=== PATIENT | female | born 1975 | race Caucasian/White ===

== ENCOUNTER 2019-03-12 07:32 | Day surgery (SDC) | payer OTHER ==
[~2019-03-12] VITALS: Ht 152.4 cm; Wt 83.0 kg
[~2019-03-12 07:32] MED LIST: none per pt
[2019-03-12] MEDS ORDERED: LACTATED RINGERS 1,000 ML IV SCH (07:49)
[2019-03-12] MEDS ORDERED: GABAPENTIN 300 MG CAPSULE PO ONE ×2 (08:00→09:00)
[2019-03-12] MEDS ORDERED: ACETAMINOPHEN 500 MG TABLET PO ONE ×2 (08:00→09:00)
[2019-03-12] MEDS ORDERED: SCOPOLAMINE PATCH, 1.5MG PATCH.TD72 TD ONE ×2 (08:00→09:00)
[2019-03-12 08:03] VITALS: BP 120/88
[2019-03-12] MEDS ORDERED: DEXAMETHASONE 4 MG/ML, 1ML ONE ×2 (08:23)
[2019-03-12] MEDS ORDERED: ROCURONIUM 10MG/ML,5ML ONE (08:23)
[2019-03-12] MEDS ORDERED: LIDOCAINE-MPF 2% ,5ML ONE (08:23)
[2019-03-12] MEDS ORDERED: PROPOFOL 10 MG/ML, 20ML ONE (08:23)
[2019-03-12] MEDS ORDERED: FENTANYL PF 100 MCG/2ML ONE ×2 (08:23→11:37)
[2019-03-12] MEDS ORDERED: MIDAZOLAM 1 MG/ML, 2ML ONE (08:23)
[2019-03-12] MEDS ORDERED: ONDANSETRON 2MG/ML, 2ML ONE (08:24)
[2019-03-12] MEDS ORDERED: CEFAZOLIN 1,000 MG ONE ×2 (08:24)
[2019-03-12] MEDS ORDERED: INDIGO CARMINE 0.8%, 5ML ONE (09:50)
[2019-03-12] MEDS ORDERED: LIDOCAINE 1%-EPI 1:100K, 20ML ONE (09:50)
[2019-03-12] MEDS ORDERED: GLYCOPYRROLATE 0.2MG/1ML, 5ML ONE (10:06)
[2019-03-12] MEDS ORDERED: NEOSTIGMINE 1 MG/ML, 10ML ONE (10:06)
[2019-03-12] MEDS ORDERED: OXYcodone 5 MG/5 ML ORAL.SOL UDC PO PRN (11:00)
[2019-03-12] MEDS ORDERED: hydrALAzine 20 MG/ML, 1ML IV PRN (11:00)
[2019-03-12] MEDS ORDERED: METOCLOPRAMIDE 5 MG/ML, 2ML IV PRN (11:00)
[2019-03-12] MEDS ORDERED: ONDANSETRON 2MG/ML, 2ML IV PRN (11:00)
[2019-03-12] MEDS ORDERED: MEPERIDINE/PF 25MG/ML,1ML IVPush PRN (11:00)
[2019-03-12] MEDS ORDERED: HYDROmorphone 2 MG/ML, 1ML IVPush PRN (11:00)
[2019-03-12] MEDS ORDERED: LORazepam 2 MG/ML, 1ML IVPush PRN (11:00)
[2019-03-12] MEDS ORDERED: KETOROLAC 30 MG/1 ML ONE (11:15)
[2019-03-12] MEDS ORDERED: OXYcodone 5 MG/5 ML ORAL.SOL UDC ONE (11:37)
[2019-03-12] MEDS: FENTANYL PF 100 MCG/2ML IV PRN ×2 (11:38→11:52)
[2019-03-12] MEDS ORDERED: HYDROmorphone 1 MG/ML, 1ML INJ ONE (12:00)
== END 2019-03-12 15:30 | disposition home or self-care (01) ==
LOC: OUT 07:32
PROVIDERS: ATTEND Obstetrics & Gynecology Gynecology
DX: N92.0 Excessive and frequent menstruation with regular cycle (principal); N94.6 Dysmenorrhea, unspecified; N87.9 Dysplasia of cervix uteri, unspecified; N88.8 Other specified noninflammatory disorders of cervix uteri; N81.5 Vaginal enterocele; D50.0 Iron deficiency anemia secondary to blood loss (chronic); E66.3 Overweight; Z98.51 Tubal ligation status
CPT/HCPCS: 36415; 58270; 85014; 88307; J0690; J1100; J1170; J1885; J2250; J2405; J2704; J2710; J3010; J3490; J7120

== ENCOUNTER 2020-06-28 13:37 | Day surgery (SDC) | payer OTHER ==
[~2020-06-28] VITALS: Ht 152.4 cm; Wt 84.2 kg
[2020-06-28] MEDS ORDERED: ACET-1600 PO (14:00)
[2020-06-28] MEDS ORDERED: LACTATED RINGERS 1,000 ML IV SCH (14:00)
[2020-06-28] MEDS ORDERED: OXYC-302 PEG (14:00)
[2020-06-28] MEDS ORDERED: CHLORHEXIDINE 15 ML UDC ONE (14:05)
[2020-06-28 14:22] VITALS: BP 129/85
[2020-06-28 14:29] LABS: BASOPHILS % (AUTO) 1 % (0-1); EOSINOPHILS % (AUTO) 1 % (1-7); LYMPHOCYTES % (AUTO) 24 % (22-44); MEAN CORPUSCULAR HEMOGLOBIN 29.9 pg (27.0-34.8); MEAN CORPUSCULAR HGB CONC 33.7 g/dL (32.4-35.8); MEAN PLATELET VOLUME 8.5 fL (7.4-10.4); MONOCYTES % (AUTO) 7 % (2-9); NEUTROPHILS % (AUTO) 68 % (42-75); PLATELET COUNT 293 x10^3/uL (130-400); RED CELL DISTRIBUTION WIDTH 13.5 % (9.6-15.2)
[2020-06-28] MEDS ORDERED: CHLORHEXIDINE 15 ML UDC PO ONE (14:30)
[2020-06-28 14:35] LABS: ANION GAP 7 mmol/L (5-15); CALCIUM 9.1 mg/dL (8.5-10.1); CHLORIDE 110 mmol/L (98-107); CREATININE 0.62 mg/dL (0.55-1.02)
[2020-06-28 14:37] LABS: INTERNATIONAL NORMALIZED RATIO 1.03 (0.93-1.1)
[2020-06-28 14:38] LABS: MD NO
[2020-06-28 14:51] LABS: HCG UR SG 1.021 (1.003-1.030)
[2020-06-28] MEDS ORDERED: LABETALOL 5MG/ML, 20ML IV PRN (15:30)
[2020-06-28] MEDS ORDERED: HYDROmorphone 1 MG/ML, 1ML INJ IVPush PRN (15:30)
[2020-06-28] MEDS ORDERED: ACETAMINOPHEN 325 MG TABLET PO PRN (15:30)
[2020-06-28] MEDS ORDERED: HALOPERIDOL 5 MG/ML IV PRN (15:30)
[2020-06-28] MEDS ORDERED: OXYcodone 5 MG/5 ML ORAL.SOL UDC PO PRN (15:30)
[2020-06-28] MEDS ORDERED: morphine SULFATE 10 MG/ML, 1ML IVPush PRN (15:30)
[2020-06-28] MEDS ORDERED: hydrALAzine 20 MG/ML, 1ML IV PRN (15:30)
[2020-06-28] MEDS ORDERED: MEPERIDINE/PF 25MG/0.5ML IVPush PRN (15:30)
[2020-06-28] MEDS ORDERED: PROMETHAZINE 25 MG/ML, 1ML IVPush PRN (15:30)
[2020-06-28] MEDS ORDERED: OMNIPAQUE 350 MG/ML, 50 ML BOTTLE IV ONE (15:58)
[2020-06-28] MEDS ORDERED: ROCURONIUM 10MG/ML,5ML ONE (16:04)
[2020-06-28] MEDS ORDERED: ONDANSETRON 2MG/ML, 2ML ONE (16:04)
[2020-06-28] MEDS ORDERED: NEOSTIGMINE 1 MG/ML, 10ML ONE (16:04)
[2020-06-28] MEDS ORDERED: CEFAZOLIN 1,000 MG ONE (16:04)
[2020-06-28] MEDS ORDERED: KETOROLAC 30 MG/1 ML ONE (16:04)
[2020-06-28] MEDS ORDERED: DEXAMETHASONE 4 MG/ML, 1ML ONE (16:04)
[2020-06-28] MEDS ORDERED: PROPOFOL 10 MG/ML, 20ML ONE (16:04)
[2020-06-28] MEDS ORDERED: FENTANYL PF 250 MCG/5ML ONE (16:04)
[2020-06-28] MEDS ORDERED: MIDAZOLAM 1 MG/ML, 2ML ONE (16:04)
[2020-06-28] MEDS ORDERED: GLYCOPYRROLATE 0.2MG/1ML, 5ML ONE (16:04)
[2020-06-28] MEDS ORDERED: PROMETHAZINE 25 MG/ML, 1ML ONE (17:44)
[2020-06-28] MEDS ORDERED: FENTANYL PF 100 MCG/2ML ONE ×2 (17:56→18:32)
[2020-06-28] MEDS ORDERED: OXYcodone 5 MG/5 ML ORAL.SOL UDC ONE (17:57)
[2020-06-28] MEDS: FENTANYL PF 100 MCG/2ML IV PRN ×3 (18:00→18:38)
[2020-06-28] MEDS ORDERED: OMNIPAQUE 350 MG/ML, 50 ML BOTTLE ONE (18:28)
[2020-06-28] MEDS ORDERED: PHENAZOPYRIDINE 200 MG TABLET PO ONE (18:30)
[2020-06-28] MEDS ORDERED: KETO10TA PO (19:24)
[2020-06-28] MEDS ORDERED: PHEN-418 PO (19:24)
[2020-06-28] MEDS ORDERED: ACETAMINOPHEN 325 MG TABLET ONE (19:56)
== END 2020-06-28 20:55 | disposition home or self-care (01) ==
LOC: OR 13:37
PROVIDERS: ATTEND Urology
DX: N20.0 Calculus of kidney (principal); Z79.899 Other long term (current) drug therapy; Z90.710 Acquired absence of both cervix and uterus; Z98.890 Other specified postprocedural states; Z72.89 Other problems related to lifestyle; Z87.891 Personal history of nicotine dependence; Z79.01 Long term (current) use of anticoagulants
CPT/HCPCS: 36415; 52356; 74420; 80048; 81025; 85025; 85610; 85730; 88300; C2617; J0690; J1100; J1885; J2250; J2405; J2550; J2704; J2710; J3010; J7120; Q9967; 82360